=== PATIENT | female | born 1990 | race Caucasian/White ===

== ENCOUNTER 2018-08-16 17:14 | Emergency (ER) | payer OTHER ==
[~2018-08-16] VITALS: Ht 170.2 cm; Wt 96.6 kg
[~2018-08-16 17:14] MED LIST: ACETAMINOPHEN-1 EAC1 PO; CLONIDINE HCL0.1 MG PO; MULTI VITAMIN1 EACH PO; STRATTERA40 MG PO; TRAZODONE HCL150 MG PO
[2018-08-16] MEDS ORDERED: CYCLOBENZAPRINE10 MG PO (17:27)
[2018-08-16] MEDS ORDERED: MELATONIN10 M3 PO (17:27)
[2018-08-16] MEDS ORDERED: NAPROXEN500 M1 PO (17:27)
[2018-08-16] MEDS ORDERED: NORCO 5-325 TA1 EACH PO (18:24)
== END 2018-08-16 18:55 | disposition home or self-care (01) ==
LOC: ED 17:14
DX: S93.402A Sprain of unspecified ligament of left ankle, initial encounter (principal); J45.909 Unspecified asthma, uncomplicated; F31.9 Bipolar disorder, unspecified; Z87.891 Personal history of nicotine dependence; Z88.0 Allergy status to penicillin; Z88.1 Allergy status to other antibiotic agents; Z79.899 Other long term (current) drug therapy; X50.9XXA Other and unspecified overexertion or strenuous movements or postures, initial encounter
CPT/HCPCS: 73610; 73630; 99283-25

== ENCOUNTER 2021-09-02 18:33 | Emergency (ER) | payer OTHER ==
[~2021-09-02] VITALS: Ht 170.2 cm; Wt 106.6 kg
[~2021-09-02 18:33] MED LIST changes: +CYCLOBENZAPRINE10 MG PO; +MELATONIN10 M3 PO; +NAPROXEN500 M1 PO; +NORCO 5-325 TA1 EACH PO
[2021-09-02] MEDS ORDERED: KETOCONAZOLE120 ML TOP (19:17)
== END 2021-09-02 20:19 | disposition home or self-care (01) ==
LOC: ED 18:33
DX: S90.01XA Contusion of right ankle, initial encounter (principal); W07.XXXA Fall from chair, initial encounter; J45.909 Unspecified asthma, uncomplicated; Z87.891 Personal history of nicotine dependence; Z88.0 Allergy status to penicillin; Z88.8 Allergy status to other drugs, medicaments and biological substances; Z79.899 Other long term (current) drug therapy
CPT/HCPCS: 73610; 99283-25

== ENCOUNTER 2023-05-11 01:53 | Emergency (ER) | payer OTHER ==
[~2023-05-11] VITALS: Ht 170.2 cm; Wt 113.4 kg
--- OUTSIDE RECORDS SUMMARY | ~2023-05-11 | XMS | Continuity of Care Document ---
Demographics + + + | Address | [facility] | | | [place] [address] | + + + | Preferred Language | Unknown | + + + | Marital Status | Never | + + + | Cheondoism Affiliation | Unknown | + + + | Race | White | + + + | Ethnic Group | Not or | + + + Author + + + | Author | [facility] | + + + | Organization | [facility] | + + + | Address | [address] | | | [place] [address] | + + + | Phone | | + + + Care Team Providers + + + + | Care Paper Plate Machine Tender Name | Role | Phone | + + + + Unavailable | Unavailable | + + + + Allergies No information. Encounters No information. Functional Status No information. Immunizations No information. Medications No information. Problems + + + + | date | description | facility | + + + + | 2023-03-19 22:26 | UNSPECIFIED ASTHMA, | [facility] | | | UNCOMPLICATED | | + + + + | 2023-03-19 22:26 | PAIN IN RIGHT SHOULDER | [facility] | + + + + | 2023-03-19 22:26 | BURSITIS OF RIGHT SHOULDER | [facility] | | | | | + + + + | 2023-03-19 22:26 | OTHER ASSISTED (CURRENT) | [facility] | | | DRUG THERAPY | | + + + + | 2023-03-19 22:26 | PERSONAL HISTORY OF | [facility] | | | NICOTINE DEPENDENCE | | + + + + | 2023-03-19 22:26 | ALLERGY STATUS TO OTHER | [facility] | | | ANTIBIOTIC AGENTS STATUS | | + + + + Procedures No information. Results/Labs No information. Social History +--------+ + + | date | description | facility | +--------+ + + Vital Signs No information."
[~2023-05-11 01:53] MED LIST changes: +FLUTICASONE-SA1 EAC3; +IBU800 MG PO; +KETOCONAZOLE120 ML TOP; +VENTOLIN HFA18 GM INH; +VITAMIN D21250 MCG PO
[2023-05-11 03:01] LABS: BASOPHILS 0.3 % (0-2); EOSINOPHILS 0.6 % (0-6); HEMATOCRIT 43.3 % (35.0-50.0); HEMOGLOBIN 14.7 g/dL (12.0-18.0); LYMPHOCYTES 51.8 % (24-44); MCH 30.4 (27-36); MCHC 33.9 g/dl (30-36); MCV 89.7 fl (81-99); MONOCYTES 5.5 % (0-12); NEUTROPHILS 41.8 % (39-80); PLATELET COUNT 347 K/uL (140-440); RBC 4.83 M/ul (4.3-5.7)
[2023-05-11 03:28] LABS: ALBUMIN 3.2 g/dL (3.4-5.0); ANION GAP 14.8 (7-21); BILIRUBIN, TOTAL 0.3 ng/dL (0.2-1.0); BUN/CREATININE RATIO 12.04 (6.0-28.6); CALCIUM 8.5 mg/dL (8.5-10.1); CREATININE, SERUM 0.83 mg/dL (0.55-1.02); POTASSIUM 3.8 mmol/L (3.5-5.1); PROTEIN, TOTAL 6.4 g/dL (6.4-8.2)
[2023-05-11] MEDS ORDERED: CYCLOBENZAPRINE10 MG PO (04:31)
[2023-05-11 05:08] VITALS: BP 133/60
== END 2023-05-11 05:10 | disposition home or self-care (01) ==
LOC: ED 01:53
PROVIDERS: Family Medicine
DX: M79.18 Myalgia, other site (principal); J45.909 Unspecified asthma, uncomplicated; Z88.0 Allergy status to penicillin; Z88.8 Allergy status to other drugs, medicaments and biological substances; Z91.030 Bee allergy status; Z79.899 Other long term (current) drug therapy; Z87.891 Personal history of nicotine dependence
CPT/HCPCS: 36415; 76705; 80053; 83690; 85025; 96374; 99284-25; J2270

== ENCOUNTER 2025-05-17 08:21 | Emergency (ER) | payer OTHER ==
[~2025-05-17] VITALS: Ht 170.2 cm; Wt 105.1 kg
[2025-05-17] MEDS ORDERED: SODIUM CHLORIDE 0.9% 1,000 ML IV PRN (08:45)
[2025-05-17] MEDS ORDERED: KETOROLAC TROMETHAMINE 15 MG/ML VIAL IV ONE (08:45)
[2025-05-17] MEDS ORDERED: METOCLOPRAMIDE HCL 10 MG/2 ML SDV IV ONE (08:45)
[2025-05-17 10:30] VITALS: BP 137/90
== END 2025-05-17 10:29 | disposition home or self-care (01) ==
LOC: ED 08:21
DX: G43.909 Migraine, unspecified, not intractable, without status migrainosus (principal); J45.909 Unspecified asthma, uncomplicated; Z87.891 Personal history of nicotine dependence; Z88.0 Allergy status to penicillin; Z88.1 Allergy status to other antibiotic agents; Z88.8 Allergy status to other drugs, medicaments and biological substances; Z91.030 Bee allergy status; Z79.899 Other long term (current) drug therapy
CPT/HCPCS: 96374; 96375; 99283-25; J1200; J1885; J2765; J7030